=== PATIENT | male | born 1975 | race Caucasian/White ===

== ENCOUNTER 2024-05-12 07:28 | Day surgery (SDC) | payer OTHER, SELFPAY ==
--- NOTE | 2024-05-12 | PATH_ITS ---
[facility] Accession Number: [id number] No. of containers..02 Tissue . 01 Material submitted: . PART A: gastrointestinal site - ESOPHAGUS PART B: esophagus - GASTRIC . 01 Clinical history: . A: R/O HP . 01 Diagnosis: Part A: ESOPHAGUS: Squamous mucosa with changes consistent with reflux. No evidence of eosinophilic esophagitis. See comment. . Part B: GASTRIC: Gastric mucosa with mild chronic inflammation. No Helicobacter organisms identified. No intestinal metaplasia, dysplasia, or malignancy identified. [facility] 05/16/20241209 Local . 01 Comment: The specimens were received in containers identifying the gastric biopsy as esophagus, and vice versa. The microscopic descriptions and diagnoses correspond with the anatomic origin of the specimens as determined microscopically. . 01 Electronically signed: . Ashutosh De La Rosa MD, Pathologist NPI- [id number] . 01 Gross description: . Part A: ESOPHAGUS : Received in formalin are 3 fragment(s) of aragon, soft tissue measuring 0.2 x 0.1 x 0.1 cm to 0.3 x 0.2 x 0.1 cm submitted entirely in 1 cassette(s) . Part B: GASTRIC: Received in formalin is 1 fragment(s) of aragon, soft tissue measuring 0.4 x 0.2 x 0.2 cm submitted entirely in 1 cassette(s) /[facility] 05/16/2024 1210 Local . 01 Microscopic: . Part A: GASTRIC : Eosinophils are present in numbers of up to 4 per high power microscopic field. An ABPAS stain was performed to evaluate for fungal organisms and is negative. The control stains appropriately. . Part B: ESOPHAGUS: An immunohistochemical stain was performed to evaluate for Helicobacter organisms and is negative. The control stains appropriately. * This test was developed and the performance characteristics were validated by [facility]. It has not been cleared or approved by the Food and Drug Administration. . 01 Pathologist provided ICD-10: K21.00, K29.50 . 01 CPT . 044402, 877797, 183713, S42161 Specimen Comment: A courtesy copy of this report has been sent to [phone] Performed at: [address] [id number], [place], [place] [id number] MD Ashutosh De La Rosa MD Phone: [phone]
[2024-05-12 08:05] VITALS: BP 183/109; PULSE 82; RESP 12; TEMP 36.1; O2SAT 99
--- NOTE | 2024-05-12 08:27 | P.HP_ITS ---
History of Present Illness History of Present Illness Date Patient Seen: 05/12/24 Chief complaint: EGD & Colonoscopy Narrative: Dysphagia at the suprasternal notch and need for 1st colorectal cancer screening asymptomatic PFSH Social History Smoking Status: Current every day smoker alcohol intake: current Meds Home Medications and Allergies Home Medications Medication Instructions Recorded Confirmed Type losartan 50 mg tablet 50 mg PO DAILY 05/12/24 05/12/24 History Allergies Allergy/AdvReac Type Severity Reaction Status Date / Time No Known Drug Allergies Allergy Verified 05/12/24 07:42 Exam Vital Signs (past 8 hours): - 05/12/24 08:05 Temperature 97 F L Pulse Rate 82 Respiratory Rate 12 Blood Pressure 183/109 H Pulse Oximetry 99 Oxygen Delivery Method Room Air Oxygen Delivery Method Room Air Narrative Exam Narrative: Oropharynx free of lesions Chest clear to auscultation percussion Cardiac exam reveals no S3 or murmur Assessment & Plan Assessment & Plan narrative: Occasional dysphagia at the suprasternal notch need for EGD to evaluate and treat First colorectal cancer screening. Risks, benefits, alternatives have been explained. Time-Based Coding :: [TOTAL MINUTES] spent with patient and on the chart (including review of chart, obtaining history, exam, reviewing outside data, placing orders, documenting exa m and treatment plan, and counseling patient) on [DATE].
--- NOTE | 2024-05-12 08:28 | PM.OP.EC ---
Operative Date/Time/Diagnoses Date of procedure: 05/12/24 Pre-op diagnosis: See indication findings Procedure & Clinicians Study performed: EGD and colonoscopy Indications: Suprasternal notch dysphagia and 1st colorectal cancer screening Surgeon: Shandra Molina Procedure Notes Procedure in detail: After informed consent was obtained the patient was placed in left lateral decubitus position. The video upper scope was placed into the oropharynx and with the patient's help swallowed into the esophagus. The esophagus stomach and duodenal were carefully examined. On withdrawal, retroflexed view the GE junction was performed. The scope was removed. The patient tolerated procedure well. The patient was then turned to the colonoscope substituted. This was placed in the rectum slowly advanced cecum. Preparation was good. On slow withdrawal mucosa was carefully examined. The scope was removed. The patient tolerated procedure well. Blood loss none Complications none Sedation mac Findings EGD 1. Concentric rings in the entire esophagus biopsies taken to rule out eosinophilic esophagitis 2. No mechanical cause for dysphagia 3. Striped gastric erythema biopsies taken to rule out Helicobacter 4. Normal duodenal bulb and sweep Colonoscopy 1. Normal colonoscopy to cecum Will be in touch regarding the esophageal biopsies. I expect he will have to be treated for eosinophilic esophagitis. He will not need follow-up colonoscopy for 10 years.
[2024-05-12 09:02] VITALS: BP 128/94; PULSE 82; RESP 11; TEMP 36.4; O2SAT 96
[2024-05-12 09:07] VITALS: BP 118/83; PULSE 100; RESP 11; O2SAT 96
[2024-05-12 09:12] VITALS: BP 121/82; PULSE 93; RESP 12; O2SAT 96
[2024-05-12 09:17] VITALS: BP 127/88; PULSE 96; RESP 15; TEMP 36.3; O2SAT 97
== END 2024-05-12 09:29 | disposition home or self-care (01) ==
PROVIDERS: PCP Physician Assistant; Referring Provider Internal Medicine Gastroenterology; Visit Provider Internal Medicine Gastroenterology
PROC: 0DJ08ZZ Inspection of Upper Intestinal Tract, Via Natural or Artificial Opening Endoscopic (ICD-10-PCS; CPT 43235; principal; 2024-05-12 08:30)
PROC: 0DJD8ZZ Inspection of Lower Intestinal Tract, Via Natural or Artificial Opening Endoscopic (ICD-10-PCS; CPT 45378; 2024-05-12 08:30)
DX: Z12.11 Encounter for screening for malignant neoplasm of colon (principal); R13.19 Other dysphagia; K29.50 Unspecified chronic gastritis without bleeding
CPT/HCPCS: 45378; 43239; J2704